=== PATIENT | male | born 1990 | race Caucasian/White ===

== ENCOUNTER → 2025-01-13 12:16 | Outpatient (BNVA) | payer BC, SELFPAY | PROVIDERS: Visit Provider Internal Medicine | DX: E23.0 Hypopituitarism (principal); E11.9 Type 2 diabetes mellitus without complications; E23.7 Disorder of pituitary gland, unspecified; Z12.5 Encounter for screening for malignant neoplasm of prostate | CPT/HCPCS: 36415; 80053; 80061; 84153; 84305; 84403; 84439; 85025 ==